=== PATIENT | male | born 1980 | race Caucasian/White ===

== ENCOUNTER → 2024-04-23 14:49 | Outpatient (REF) | payer OTHER, SELFPAY | LOC: RAD 14:49 | PROVIDERS: ATTENDING PHYSICIAN Family Medicine | DX: M25.551 Pain in right hip (principal) | CPT/HCPCS: 73502 ==

== ENCOUNTER 2024-07-13 06:11 | Day surgery (SDC) | payer OTHER, SELFPAY ==
[2024-07-13 09:18] VITALS: BP 130/83
[2024-07-13 09:39] VITALS: BMI 24.0
[2024-07-13 09:42] VITALS: BMI 24.0
[2024-07-13 10:58] VITALS: BP 123/89
[2024-07-13 11:00] VITALS: BP 118/82
[2024-07-13 11:15] VITALS: BP 138/98
[2024-07-13 11:28] VITALS: BP 121/86
[2024-07-13 11:30] VITALS: BP 126/79
== END 2024-07-13 11:40 | disposition home or self-care (01) ==
LOC: GI 06:11
PROVIDERS: ATTENDING PHYSICIAN Internal Medicine Gastroenterology
DX: Z12.11 Encounter for screening for malignant neoplasm of colon (principal); Z83.719 Family history of colon polyps, unspecified; Z53.8 Procedure and treatment not carried out for other reasons
CPT/HCPCS: G0105